=== PATIENT | male | born 1985 | race Two or more races ===

== ENCOUNTER 2018-03-18 10:01 | Outpatient (CLI) | payer OTHER ==
[~2018-03-18] VITALS: Ht 180.3 cm; Wt 95.3 kg
[~2018-03-18 10:01] MED LIST: CLARINEX5 MG/TAB PO
[2018-03-18] MEDS ORDERED: OFLOXACIN5 ML OTIC (11:28)
== END 2018-03-18 10:15 | disposition home or self-care (01) ==
LOC: OFIC 805 10:01
DX: H66.93 Otitis media, unspecified, bilateral (principal); J31.0 Chronic rhinitis

== ENCOUNTER 2018-04-15 07:44 | Outpatient (CLI) | payer OTHER ==
[~2018-04-15] VITALS: Ht 152.4 cm; Wt 95.3 kg
[~2018-04-15 07:44] MED LIST changes: +OFLOXACIN5 ML OTIC
[2018-04-15] MEDS ORDERED: OFLOXACIN5 ML OTIC (08:30)
[2018-04-15] MEDS ORDERED: SWIM EAR DRO29.57 ML OT (08:30)
== END 2018-04-15 08:00 | disposition home or self-care (01) ==
LOC: OFIC 805 07:44
DX: J31.0 Chronic rhinitis (principal); H66.92 Otitis media, unspecified, left ear; H60.332 Swimmer's ear, left ear

== ENCOUNTER 2019-04-12 08:40 | Emergency (ER) | payer OTHER ==
[~2019-04-12] VITALS: Ht 182.9 cm; Wt 95.3 kg
[~2019-04-12 08:40] MED LIST changes: +SWIM EAR DRO29.57 ML OT
== END 2019-04-12 11:08 | disposition home or self-care (01) ==
LOC: ER 08:40
DX: J11.1 Influenza due to unidentified influenza virus with other respiratory manifestations (principal)